=== PATIENT | female | born 1950 | race Caucasian/White ===

== ENCOUNTER 2018-06-23 03:36 | Emergency (ER) | payer MEDICARE ==
[~2018-06-23] VITALS: Ht 154.9 cm; Wt 62.1 kg
[~2018-06-23 03:36] MED LIST: ASPIRIN EC81 M1 PO; AUGMENTIN 875875 MG PO; CARAFATE 1 GM TA1 G1 PO; CARISOPRODOL 3350 MG PO; CIPRO500 MG PO; IBUPROFEN 600600 M1 PO; NAPROXEN SODIU375 M1 PO; NORCO 5-325 TA1 EACH PO; PREVACID15 MG PO; PROMETHAZINE12.5 M1 PO; ZOCOR20 MG PO
[2018-06-23] MEDS ORDERED: CRESTOR40 MG (03:47)
[2018-06-23] MEDS ORDERED: ASPIR 8181 MG (03:48)
[2018-06-23 04:31] LABS: ABSOLUTE BASOPHILS 0.1 thou/uL (0.0-0.2); ABSOLUTE EOSINOPHILS 0.1 thou/uL (0.0-0.7); ABSOLUTE LYMPHOCYTES 3.3 thou/uL (0.8-5.3); ABSOLUTE MONOCYTES 1.9 thou/uL (0.0-1.2); ABSOLUTE NEUTROPHILS 10.5 thou/uL (1.6-8.1); BASOPHILS 0.9 %; EOSINOPHILS 0.4 %; HEMATOCRIT 38.6 % (37.0-47.0); HEMOGLOBIN 12.9 gm/dL (12.0-15.0); MCH 29.2 pg (26.0-34.0); MCHC 33.3 g/dL (28.0-37.0); MCV 87.6 fL (80.0-100.0); MONOCYTES 11.7 %; MPV 9.9 fl. (7.2-11.1); NUCLEATED RBCS 0 /100WBC; PLATELET COUNT* 183 thou/uL (150-400); RBC 4.41 mil/uL (4.20-5.00); RDW-CV 14.2 % (10.5-14.5); WBC 15.8 thou/uL (4.0-11.0)
[2018-06-23 04:41] LABS: ANION GAP 13 mmol/L (7-16); BUN 21 mg/dL (7-18); CALCIUM 8.2 mg/dL (8.5-10.1); CHLORIDE 102 mmol/L (98-107); CO2 25 mmol/L (21-32); CREATININE 1.3 mg/dL (0.6-1.3); GLUCOSE 122 mg/dL (70-99); SODIUM 140 mmol/L (136-145)
[2018-06-23 04:48] LABS: ALBUMIN 2.7 g/dL (3.4-5.0); ALKALINE PHOSPHATASE 205 U/L (46-116); LIPASE 166 U/L (73-393); SGOT 51 U/L (15-37); SGPT 70 U/L (30-65); TOTAL BILIRUBIN 1.3 mg/dL (<0.1-1.0); TOTAL PROTEIN 6.7 g/dL (6.4-8.2); TROPONIN-I LEVEL <0.06 ng/mL (<0.06)
[2018-06-23 05:02] LABS: URINE BILIRUBIN NEGATIVE (Negative); URINE BLOOD 1+ (Negative); URINE CLARITY CLEAR; URINE COLOR YELLOW; URINE GLUCOSE-RANDOM NEGATIVE (Negative); URINE KETONES 1+ (Negative); URINE PROTEIN 1+ (Negative); URINE UROBILINOGEN 0.2 E.U./dl (0.2-1.0)
[2018-06-23 05:13] LABS: URINE LEUKOCYTES-REFLEX 2+ (Negative); URINE NITRITE-REFLEX POSITIVE (Negative)
[2018-06-23 05:16] LABS: BACTERIA-REFLEX >30 Many /HPF (None Seen); CASTS None Seen /LPF (None Seen); CRYSTALS None Seen /LPF (None Seen); MUCUS 0-3 Light strn/LPF (None Seen); SQUAMOUS 0-3 Few /LPF (0-3); URINE RBC >20 Many /HPF (0-2); URINE WBC-REFLEX >25 Many /HPF (0-5); WBC CLUMPS Moderate (None Seen)
[2018-06-23] MEDS ORDERED: LEVAQUIN 750 M750 MG PO (06:17)
[2018-06-23 07:40] VITALS: BP 127/66
--- NOTE | 2018-06-23 10:38 | EKG ---
[place] [address] ELECTROCARDIOGRAM REPORT Name: JESÚSMELLISSADOYLE WOOD Room: [facility]#: [id number] Admission: 06/23/18 Attend Phys: Discharge: 06/23/18 Date of : 48 Report #: [id number] THIS REPORT FOR: //name// [facility] ED Test Date: 2018-06-23 Test Time: 03:58:44 Pat Name: MELLISSA ESPINOSA Department: Room: Gender: F Electric Meter Installer: CARLOS : 1950 Requested By: Salty Newman Order Number: [id number] MD: Librado Aquino Measurements Intervals Oriental Rate: 93 P: GA: QRS: 2 QRSD: 115 T: 27 QT: 336 QTc: 418 Interpretive Statements sinus rhythm with pac early transition Compared to ECG 03/16/2014 17:09:19 no change Electronically Signed On 06-23-2018 10:38:04 [employer] INTER[employer] by Librado Aquino [email or web address] <ELECTRONICALLY SIGNED> By: Librado Aquino MD, [facility] 06/23/18 [id number] Librado Aquino MD, FACC /EPI
== END 2018-06-23 07:42 | disposition home or self-care (01) ==
LOC: M.ERS 03:36
PROVIDERS: Emergency Medicine Emergency Medical Services
DX: N39.0 Urinary tract infection, site not specified (principal); I10 Essential (primary) hypertension; Z90.710 Acquired absence of both cervix and uterus; Z98.890 Other specified postprocedural states

== ENCOUNTER 2018-08-27 15:51 | Emergency (ER) | payer MEDICARE ==
[~2018-08-27] VITALS: Ht 152.4 cm; Wt 63.5 kg
[~2018-08-27 15:51] MED LIST changes: +ASPIR 8181 MG; +CRESTOR40 MG; +LEVAQUIN 750 M750 MG PO
[2018-08-27] MEDS ORDERED: CENTANY30 GM TOP (16:52)
[2018-08-27 17:50] VITALS: BP 136/69
== END 2018-08-27 17:50 | disposition home or self-care (01) ==
LOC: M.ERS 15:51
DX: S01.01XA Laceration without foreign body of scalp, initial encounter (principal); I10 Essential (primary) hypertension; Z90.710 Acquired absence of both cervix and uterus; W00.0XXA Fall on same level due to ice and snow, initial encounter; Y93.89 Activity, other specified; Y92.89 Other specified places as the place of occurrence of the external cause; Y99.8 Other external cause status